=== PATIENT | female | born 1955 | race Caucasian/White ===

== ENCOUNTER → 2017-07-25 | Emergency (ER) | payer OTHER ==
[~2017-07-25] VITALS: Ht 172.7 cm; Wt 95.3 kg
[~2017-07-25] MED LIST: AMOX1TAB12 PO; AMOX1TAB5 PO; AMOXICILLIN500 M1; ATROVENT 00.5 MG/2.5 IH; BACTRIM DS TABL1 TAB PO; BIAXIN500 MG; CALADRYL CLEAR177 ML TP; CATAFLAM50 MG PO; DILANTIN100 MG; DOLOGESIC CAPSU1 CAP PO; GUIATUSS DM SY120 ML PO; IBUPROFEN800 MG PO; KETO10TA2 PO; NEURONTIN300 MG PO; ORPH100T PO; PHENOBARBITAL30 MG; PROVENTIL3 ML/2.5 M IH; SILVADENE50 GM TP; TUSSI PRES-B L120 M1 PO; ZITHROMAX TRI-500 MG PO
== END | disposition home or self-care (01) ==
LOC: ER 13:13
DX: R42 Dizziness and giddiness (principal); R56.9 Unspecified convulsions

== ENCOUNTER 2017-09-28 08:07 | Emergency (ER) | payer OTHER ==
[~2017-09-28] VITALS: Ht 172.7 cm; Wt 95.3 kg
== END 2017-09-28 10:15 | disposition home or self-care (01) ==
LOC: ER 08:07
DX: M54.89 Other dorsalgia (principal)

== ENCOUNTER → 2017-12-18 | Emergency (ER) | payer OTHER ==
[~2017-12-18] VITALS: Ht 172.7 cm; Wt 95.3 kg
== END | disposition home or self-care (01) ==
LOC: ER 09:31
DX: R53.1 Weakness (principal)

== ENCOUNTER 2018-04-23 08:35 | Emergency (ER) | payer OTHER ==
[~2018-04-23] VITALS: Ht 172.7 cm; Wt 98.0 kg
[2018-04-23] MEDS ORDERED: KETO10TA2 PO (11:35)
[2018-04-23] MEDS ORDERED: NORFLEX100MG PO (11:35)
== END 2018-04-23 11:51 | disposition home or self-care (01) ==
LOC: ER 08:35
DX: M54.5 Low back pain (principal); M25.562 Pain in left knee

== ENCOUNTER → 2018-06-15 | Emergency (ER) | payer OTHER ==
[~2018-06-15] VITALS: Ht 167.6 cm; Wt 97.1 kg
[~2018-06-15] MED LIST changes: +NORFLEX100MG PO
== END | disposition left against medical advice (07) ==
LOC: ER 12:48
DX: S63.592A Other specified sprain of left wrist, initial encounter (principal); X50.0XXA Overexertion from strenuous movement or load, initial encounter; Y93.89 Activity, other specified; Y92.89 Other specified places as the place of occurrence of the external cause; Y99.8 Other external cause status

== ENCOUNTER 2019-10-22 12:38 | Emergency (ER) | payer OTHER ==
[~2019-10-22] VITALS: Ht 170.2 cm; Wt 98.9 kg
== END 2019-10-22 13:41 | disposition home or self-care (01) ==
LOC: ER 12:38
DX: M54.2 Cervicalgia (principal); F06.4 Anxiety disorder due to known physiological condition

== ENCOUNTER → 2020-06-11 | Emergency (ER) | payer OTHER ==
[~2020-06-11] VITALS: Ht 167.6 cm; Wt 102.1 kg
== END | disposition left against medical advice (07) ==
LOC: ER 08:39
DX: S00.83XA Contusion of other part of head, initial encounter (principal); W18.39XA Other fall on same level, initial encounter; Y93.89 Activity, other specified; Y92.098 Other place in other non-institutional residence as the place of occurrence of the external cause; Y99.8 Other external cause status

== ENCOUNTER 2020-11-21 14:11 | Emergency (ER) | payer OTHER ==
[~2020-11-21] VITALS: Ht 170.2 cm; Wt 102.1 kg
== END 2020-11-21 15:54 | disposition home or self-care (01) ==
LOC: ER 14:11
DX: T15.81XA Foreign body in other and multiple parts of external eye, right eye, initial encounter (principal); W45.8XXA Other foreign body or object entering through skin, initial encounter; Y93.89 Activity, other specified; Y92.89 Other specified places as the place of occurrence of the external cause; Y99.8 Other external cause status

== ENCOUNTER 2022-01-03 09:07 | Emergency (ER) | payer OTHER ==
[~2022-01-03] VITALS: Ht 170.2 cm; Wt 101.6 kg
[2022-01-03] MEDS ORDERED: ACID REDUCER20 M1 PO (09:32)
[2022-01-03] MEDS ORDERED: NABUMETONE750 MG PO (09:33)
[2022-01-03] MEDS ORDERED: LEVO-T150 MCG PO (09:33)
[2022-01-03] MEDS ORDERED: PHENOBARBITAL32.4 MG PO (09:33)
[2022-01-03] MEDS ORDERED: ATORVASTATIN CA20 MG PO (09:34)
== END 2022-01-03 12:03 | disposition home or self-care (01) ==
LOC: ER 09:07
DX: S30.0XXA Contusion of lower back and pelvis, initial encounter (principal); S70.02XA Contusion of left hip, initial encounter; W18.39XA Other fall on same level, initial encounter; Y93.89 Activity, other specified; Y92.012 Bathroom of single-family (private) house as the place of occurrence of the external cause; Y99.9 Unspecified external cause status; I10 Essential (primary) hypertension; Z91.013 Allergy to seafood

== ENCOUNTER 2022-04-07 10:05 | Emergency (ER) | payer OTHER ==
[~2022-04-07] VITALS: Ht 170.2 cm; Wt 100.2 kg
[~2022-04-07 10:05] MED LIST changes: +ACID REDUCER20 M1 PO; +ATORVASTATIN CA20 MG PO; +LEVO-T150 MCG PO; +NABUMETONE750 MG PO; +PHENOBARBITAL32.4 MG PO
[2022-04-07] MEDS ORDERED: PENTOXIFYLLINE400 MG PO (10:35)
[2022-04-07] MEDS ORDERED: RELAFEN DS1000 MG PO (10:36)
[2022-04-07] MEDS ORDERED: PRILOSEC OTC20 MG PO (10:36)
[2022-04-07] MEDS ORDERED: PEPCID AC20 MG PO (10:36)
[2022-04-07] MEDS ORDERED: HYDROCHLOROTHIA25 MG PO (10:37)
== END 2022-04-07 14:03 | disposition home or self-care (01) ==
LOC: ER 10:05
DX: N95.0 Postmenopausal bleeding (principal); Z91.013 Allergy to seafood; E78.00 Pure hypercholesterolemia, unspecified; E03.9 Hypothyroidism, unspecified

== ENCOUNTER 2023-02-24 08:46 | Emergency (ER) | payer OTHER ==
[~2023-02-24] VITALS: Ht 170.2 cm; Wt 94.8 kg
[~2023-02-24 08:46] MED LIST changes: +HYDROCHLOROTHIA25 MG PO; +PENTOXIFYLLINE400 MG PO; +PEPCID AC20 MG PO; +PRILOSEC OTC20 MG PO; +RELAFEN DS1000 MG PO
== END 2023-02-24 11:48 | disposition home or self-care (01) ==
LOC: ER 08:46
DX: M62.838 Other muscle spasm (principal); E03.9 Hypothyroidism, unspecified; Z91.013 Allergy to seafood

== ENCOUNTER 2024-06-03 08:47 | Outpatient (CLI) | payer OTHER ==
[~2024-06-03 08:47] MED LIST changes: +KEPPRA1000 MG; +OMEPRAZOLE20 MG; +VISTARIL25 MG
== END 2024-06-03 08:48 | disposition home or self-care (01) ==
LOC: NUCLEAR 08:47
DX: M85.88 Other specified disorders of bone density and structure, other site (principal); M81.0 Age-related osteoporosis without current pathological fracture

== ENCOUNTER → 2024-07-11 | Emergency (ER) | payer OTHER ==
[~2024-07-11] VITALS: Ht 170.2 cm; Wt 90.7 kg
[~2024-07-11] MED LIST changes: +FAMOTIDINE/PF 20 MG/2 ML VIAL ONE; +HYOSCYAMINE SULFATE 0.125 MG TAB.SUBL ONE; +KETOROLAC TROMETHAMINE 30 MG VIAL ONE; +METOCLOPRAMIDE HCL 5 MG/ML VIAL ONE; +PROMETHAZINE HCL 50 MG/ML AMPUL IM ONE
== END | disposition left against medical advice (07) ==
LOC: ER 17:37
DX: Z53.21 Procedure and treatment not carried out due to patient leaving prior to being seen by health care provider (principal)

== ENCOUNTER 2024-07-12 02:32 | Emergency (ER) | payer OTHER ==
[~2024-07-12] VITALS: Ht 167.6 cm; Wt 81.6 kg
[~2024-07-12 02:32] MED LIST changes: -FAMOTIDINE/PF 20 MG/2 ML VIAL ONE; -HYOSCYAMINE SULFATE 0.125 MG TAB.SUBL ONE; -KETOROLAC TROMETHAMINE 30 MG VIAL ONE; -METOCLOPRAMIDE HCL 5 MG/ML VIAL ONE; -PROMETHAZINE HCL 50 MG/ML AMPUL IM ONE
[2024-07-12] MEDS ORDERED: 0.9 % SODIUM CHLORIDE 500 ML IV STA (03:52)
[2024-07-12] MEDS ORDERED: METOCLOPRAMIDE HCL 5 MG/ML VIAL IM STA (03:52)
[2024-07-12] MEDS ORDERED: KETOROLAC TROMETHAMINE 30 MG VIAL IV STA (03:53)
[2024-07-12] MEDS ORDERED: PROMETHAZINE HCL 50 MG/ML AMPUL IM STA (03:53)
[2024-07-12] MEDS ORDERED: FAMOtidine 10 MG/ML (4ML VIAL) IV PUSH STA (03:54)
[2024-07-12] MEDS ORDERED: HYOSCYAMINE SULFATE 0.125 MG TAB.SUBL SL ONE (04:00)
== END 2024-07-12 05:53 | disposition home or self-care (01) ==
LOC: ER 02:32
DX: K29.70 Gastritis, unspecified, without bleeding (principal); K21.9 Gastro-esophageal reflux disease without esophagitis; Z91.013 Allergy to seafood

== ENCOUNTER 2024-07-22 05:41 | Emergency (ER) | payer OTHER ==
[~2024-07-22] VITALS: Ht 170.2 cm; Wt 90.7 kg
[2024-07-22] MEDS ORDERED: LEVOTHYROXINE137 MC1 PO (06:09)
[2024-07-22] MEDS ORDERED: ACID REDUCER20 M1 PO (06:09)
[2024-07-22] MEDS ORDERED: HYDRODIURIL12.5 MG PO (06:09)
[2024-07-22] MEDS ORDERED: DICYCLOMIN10 MG/5 M1 (06:10)
[2024-07-22] MEDS ORDERED: PROMETHAZINE HCL 50 MG/ML AMPUL IM STA (07:24)
[2024-07-22] MEDS ORDERED: FAMOTIDINE/PF 20 MG/2 ML VIAL IV PUSH STA (07:25)
[2024-07-22] MEDS ORDERED: 0.9 % SODIUM CHLORIDE 500 ML IV ONE (07:30)
[2024-07-22] MEDS ORDERED: FAMOTIDINE/PF 20 MG/2 ML VIAL ONE (07:38)
[2024-07-22] MEDS ORDERED: PROMETHAZINE HCL 50 MG/ML AMPUL IM ONE (07:38)
[2024-07-22 08:10] LABS: HEMATOCRIT 40.3 % (36.0-45.00); HEMOGLOBIN 13.7 g/dL (12.0-15.00); MEAN CELL VOLUME 90.4 fL (80.00-100.00); MEAN CORPUSCULAR HEMOGLOBIN 30.6 pg (27.00-32.0); MEAN CORPUSCULAR HGB CONC 33.9 g/dl (32.0-36.0); PLATELET COUNT 173 K/uL (150-450); RED BLOOD COUNT 4.46 M/uL (4.00-6.00); RED CELL DISTRIBUTION WIDTH 12.3 % (11.5-14.5)
[2024-07-22 09:50] LABS: PH,URINE 6.5 (5.0-8.0); URINE APPEARANCE Clear; URINE BILIRRUBIN Negative (NEGATIVE); URINE BLOOD Negative; URINE COLOR Dark Yellow; URINE GLUCOSE Negative (NEGATIVE); URINE KETONE Trace (NEGATIVE); URINE LEUKOCYTE Moderate; URINE NITRATE Negative; URINE PROTEIN Trace (NEGATIVE)
[2024-07-22 09:51] LABS: URINE BACTERIA 704.8 uL (0.0-1933); URINE EPITHELIAL CELLS 75.5 uL (0.0-38.8); URINE RBC 21.9 uL (0.0-20.8); URINE WBC 61.5 uL (0.0-23.2)
[2024-07-22 10:06] LABS: URINE CAST 0.14 uL (0.0-1.40)
[2024-07-22 11:50] LABS: CALCIUM 9.1 mg/dL (8.5-10.1); CREATININE SERUM 0.76 mg/dL (0.55-1.02); GFR 75.23; POTASSIUM 3.97 mEq/L (3.5-5.1)
[2024-07-22] MEDS ORDERED: MECLIZINE HCL25 MG PO (12:27)
== END 2024-07-22 12:35 | disposition home or self-care (01) ==
LOC: ER 05:43
PROVIDERS: General Practice
DX: R42 Dizziness and giddiness (principal); R10.13 Epigastric pain; I10 Essential (primary) hypertension; Z91.013 Allergy to seafood

== ENCOUNTER 2024-07-23 02:22 | Emergency (ER) | payer OTHER ==
[~2024-07-23] VITALS: Ht 170.2 cm; Wt 90.7 kg
[~2024-07-23 02:22] MED LIST changes: +DICYCLOMIN10 MG/5 M1; +HYDRODIURIL12.5 MG PO; +LEVOTHYROXINE137 MC1 PO; +MECLIZINE HCL25 MG PO
[2024-07-23] MEDS ORDERED: hydrOXYzine PAMOATE 50 MG CAPSULE PO STA (04:15)
[2024-07-23] MEDS ORDERED: PROMETHAZINE HCL 50 MG/ML AMPUL IM STA (04:15)
[2024-07-23] MEDS ORDERED: PROMETHAZINE HCL 50 MG/ML AMPUL IM ONE (04:20)
[2024-07-23] MEDS ORDERED: hydrOXYzine PAMOATE 50 MG CAPSULE PO ONE (04:20)
== END 2024-07-23 04:29 | disposition home or self-care (01) ==
LOC: ER 02:22
DX: F41.8 Other specified anxiety disorders (principal); G47.09 Other insomnia; Z91.013 Allergy to seafood

== ENCOUNTER 2024-12-01 08:19 | Emergency (ER) | payer OTHER ==
[~2024-12-01] VITALS: Ht 167.6 cm; Wt 93.0 kg
[2024-12-01] MEDS ORDERED: HYOSCYAMINE SULFATE 0.125 MG TAB.SUBL SL ONE (09:30)
[2024-12-01] MEDS ORDERED: ONDANSETRON HCL 2 MG/ML VIAL IV ONE (09:30)
[2024-12-01] MEDS ORDERED: 0.9 % SODIUM CHLORIDE 1,000 ML IV ONE (09:30)
[2024-12-01] MEDS ORDERED: FAMOtidine 10 MG/ML (4ML VIAL) IV ONE (09:30)
[2024-12-01] MEDS ORDERED: HYOSCYAMINE SULFATE 0.125 MG TAB.SUBL ONE (09:42)
[2024-12-01] MEDS ORDERED: FAMOTIDINE/PF 20 MG/2 ML VIAL ONE (09:42)
[2024-12-01] MEDS ORDERED: ONDANSETRON HCL 2 MG/ML VIAL ONE (09:42)
[2024-12-01 09:49] LABS: BASO % 0.2 % (0.1-1.2); EOS # 0.13 (0.04-0.54); EOS % 1.3 % (0.7-7.0); HEMATOCRIT 39.2 % (34.1-44.9); HEMOGLOBIN 13.3 g/dL (11.2-15.7); LYMPH # 1.16 (1.18-3.74); LYMPH % 11.3 % (19.3-53.1); MEAN CORPUSCULAR HEMOGLOBIN 30.1 pg (25.6-32.2); MONO # 0.69 (0.24-0.82); MONO % 6.7 % (4.7-12.5); NEUT # 8.28 (1.56-6.13); NEUT % 80.2 % (34.0-71.1); PLATELET COUNT 240 K/uL (163-369); RED BLOOD COUNT 4.42 M/uL (3.93-5.22); RED CELL DISTRIBUTION WIDTH 11.5 % (11.6-14.4)
[2024-12-01 11:34] LABS: ALBUMIN 3.1 gm/dL (3.4-5.0); BILIRUBIN TOTAL 0.29 mg/dL (0.3-1.2); CALCIUM 8.8 mg/dL (8.5-10.1); CREATININE SERUM 0.87 mg/dL (0.55-1.02); GFR 64.18; GLOBULINA 3.9 G/DL (2.4-3.5); POTASSIUM 4.24 mEq/L (3.5-5.1)
[2024-12-01] MEDS ORDERED: PROTONIX40 MG PO (12:35)
[2024-12-01] MEDS ORDERED: APETIGEN-PLUS1 EACH PO (12:35)
== END 2024-12-01 13:51 | disposition home or self-care (01) ==
LOC: ER 08:19
PROVIDERS: General Practice
DX: K52.9 Noninfective gastroenteritis and colitis, unspecified (principal); Z91.013 Allergy to seafood